=== PATIENT | male | born 1945 | race Two or more races ===

== ENCOUNTER 2017-07-31 09:51 | Outpatient (CLI) | payer OTHER | END 2017-07-31 10:00 | disposition home or self-care (01) | LOC: EKG 09:51 | DX: I10 Essential (primary) hypertension (principal); Z01.811 Encounter for preprocedural respiratory examination ==

== ENCOUNTER 2017-08-14 07:10 | Day surgery (SDC) | payer OTHER | END 2017-08-14 13:35 | disposition home or self-care (01) | LOC: CIR.AMB 07:10 | DX: M51.17 Intervertebral disc disorders with radiculopathy, lumbosacral region (principal) ==

== ENCOUNTER 2018-08-16 09:19 | Emergency (ER) | payer OTHER ==
[~2018-08-16] VITALS: Ht 162.6 cm; Wt 75.3 kg
[2018-08-16] MEDS ORDERED: VASOTEC10 MG (09:43)
[2018-08-16] MEDS ORDERED: NORVASC2.5 M1 (09:44)
== END 2018-08-16 13:02 | disposition home or self-care (01) ==
LOC: ER 09:19
DX: R10.31 Right lower quadrant pain (principal)

== ENCOUNTER 2019-04-29 22:31 | Emergency (ER) | payer OTHER ==
[~2019-04-29] VITALS: Ht 167.6 cm; Wt 75.3 kg
[~2019-04-29 22:31] MED LIST: NORVASC2.5 M1; VASOTEC10 MG
[2019-04-30] MEDS ORDERED: ATARAX25 MG PO (02:08)
== END 2019-04-30 02:23 | disposition home or self-care (01) ==
LOC: ER 22:31
DX: L50.0 Allergic urticaria (principal); L30.8 Other specified dermatitis; L53.8 Other specified erythematous conditions

== ENCOUNTER 2019-05-06 11:19 | Emergency (ER) | payer OTHER ==
[~2019-05-06] VITALS: Ht 167.6 cm; Wt 75.3 kg
[~2019-05-06 11:19] MED LIST changes: +ATARAX25 MG PO
[2019-05-06] MEDS ORDERED: CLONAZEPAM0.5 MG (11:43)
== END 2019-05-06 15:42 | disposition home or self-care (01) ==
LOC: ER 11:19
DX: R60.0 Localized edema (principal); J91.8 Pleural effusion in other conditions classified elsewhere

== ENCOUNTER 2019-05-10 12:24 | Inpatient (IN) | payer OTHER ==
[~2019-05-10] VITALS: Ht 195.6 cm; Wt 75.3 kg
[~2019-05-10 12:24] MED LIST changes: +CLONAZEPAM0.5 MG
[2019-05-10] MEDS ORDERED: CLARITIN10 MG PO (15:02)
[2019-05-10] MEDS ORDERED: AMLODIPINE BESY10 MG PO (15:04)
[2019-05-10] MEDS ORDERED: ENALAPRIL MALEA20 MG PO (15:05)
[2019-05-10] MEDS ORDERED: LASIX20 MG PO (15:06)
[2019-05-10] MEDS ORDERED: ALDACTONE25 MG (15:08)
== END 2019-05-15 11:49 | disposition home or self-care (01) | DRG 551 ==
LOC: MEDI 12:24
PROVIDERS: ADMIT Internal Medicine Cardiovascular Disease
PROC: B03BZZZ Magnetic Resonance Imaging (MRI) of Spinal Cord (ICD-10-PCS; 2019-05-10)
PROC: B246ZZZ Ultrasonography of Right and Left Heart (ICD-10-PCS; 2019-05-10)
PROC: 8E0ZXY6 Isolation (ICD-10-PCS; 2019-05-10)
PROC: BW28ZZZ Computerized Tomography (CT Scan) of Head (ICD-10-PCS; 2019-05-11)
PROC: BW2FZZZ Computerized Tomography (CT Scan) of Neck (ICD-10-PCS; 2019-05-11)
PROC: 0HBKXZX Excision of Right Lower Leg Skin, External Approach, Diagnostic (ICD-10-PCS; principal; 2019-05-12)
PROC: BW21Y0Z Computerized Tomography (CT Scan) of Abdomen and Pelvis using Other Contrast, Unenhanced and Enhanced (ICD-10-PCS; 2019-05-12)
DX: M48.02 Spinal stenosis, cervical region (principal); I50.31 Acute diastolic (congestive) heart failure; M50.021 Cervical disc disorder at C4-C5 level with myelopathy; B86 Scabies; R60.1 Generalized edema; I11.0 Hypertensive heart disease with heart failure; N28.1 Cyst of kidney, acquired
CPT/HCPCS: 72141